=== PATIENT | female | born 1980 | race Caucasian/White ===

== ENCOUNTER → 2020-11-05 08:01 | Outpatient (BNVA) | payer OTHER, SELFPAY | PROVIDERS: PCP Internal Medicine; Visit Provider Advanced Practice Midwife | DX: Z34.90 Encounter for supervision of normal pregnancy, unspecified, unspecified trimester (principal); R11.0 Nausea | CPT/HCPCS: 99202 ==

== ENCOUNTER 2020-11-14 12:39 | Outpatient (REF) | payer OTHER, SELFPAY ==
--- NOTE | ~2020-11-14 | US_ITS ---
EXAMINATION: US OBSTETRICAL ULTRASOUND CLINICAL INFORMATION: Z34.90 - Encounter for supervision of normal COMPARISON: Pelvic ultrasound 08/28/2015. LMP: 04/27/2021. Gestational age by maternal dates is 11 weeks 1 day. Estimated date of delivery by maternal dates is 06/04/2021. TECHNIQUE: Ultrasound of the maternal pelvis is performed using transabdominal transducer. M-mode Doppler is also performed. FINDINGS: There is a single intrauterine gestation with visible yolk sac and embryo and cardiac activity. There is small subchorionic hemorrhage approximately 0.7 x 2.8 cm. HR: 163 beats per minute. CRL (crown rump length): 4.15 cm (11 weeks 1 day +/- 4 days). MARCOS (estimated date of delivery): 06/04/2021 +/- 4 days. MATERNAL ADNEXA: The right maternal ovary measures 2.5 x 2.0 x 2.0 cm. The left maternal ovary measures 2.6 x 2.3 x 2.4 cm. There is no significant maternal adnexal mass. No maternal pelvic ascites. US/US OB <= 14 weeks fetus IMPRESSION: 1. Single intrauterine gestation with ultrasound gestational age of 11 weeks 1 day +/- 4 days. 2. Estimated date of delivery is 06/04/2021 +/- 4 days. 3. Small subchorionic hemorrhage 0.7 x 2.8 cm. 4 No maternal adnexal mass or pelvic ascites.
== END 2020-11-14 12:40 | disposition home or self-care (01) ==
LOC: HO.US 12:39
PROVIDERS: PCP Internal Medicine; Visit Provider Advanced Practice Midwife
DX: O09.521 Supervision of elderly multigravida, first trimester (principal); Z3A.11 11 weeks gestation of pregnancy
CPT/HCPCS: 76801

== ENCOUNTER → 2020-12-02 09:39 | Outpatient (BNVA) | payer OTHER, SELFPAY | PROVIDERS: PCP Internal Medicine; Visit Provider Advanced Practice Midwife | DX: Z13.89 Encounter for screening for other disorder (principal) | CPT/HCPCS: 99212 ==

== ENCOUNTER 2020-12-04 08:33 | Outpatient (REF) | payer OTHER, SELFPAY ==
[2020-12-04 12:14] LABS: MANUAL DIFF FLAG NO
[2020-12-04 12:19] LABS: Basophils Percent Auto 0.3 % (0-2); Eosinophils Absolute Auto 0.1 X10*3/uL (0.0-0.4); Eosinophils Percent Auto 1.1 % (0-4); Hemoglobin 13.3 g/dl (12.0-16.0); Imm Gran Abs Auto 0.05 X10*3/uL (0.00-0.03); Imm Gran Pct Auto 0.6 % (0.0-0.4); Lymphocytes Absolute Auto 1.6 X10*3/uL (1.2-4.9); Lymphocytes Percent Auto 17.9 % (20-40); Mean Corpuscular HGB Conc 34.1 g/dl (31.0-35.0); Mean Corpuscular Hemoglobin 31.1 pg (27.0-33.0); Mean Corpuscular Volume 91.1 fL (80-98); Mean Platelet Volume 10.7 fL (9.4-12.3); Monocytes Absolute Auto 0.5 X10*3/uL (0.1-1.2); Neutrophils Absolute Auto 6.6 X10*3/uL (2.0-8.3); Neutrophils Percent Auto 74.1 % (45-73); Platelet Count 272 X10*3/uL (160-400); Red Blood Count 4.28 X10*6/uL (4.20-5.50); Red Cell Distribution Width 12.3 % (11.0-16.0); White Blood Count 8.9 X10*3/uL (4.8-10.8)
[2020-12-04 12:31] LABS: Glucose 1 Hour PP 50gm Dose 145 mg/dL (60-140)
[2020-12-04 12:44] LABS: Amphetamine Screen Urine Not Detected (Not Detect); Barbiturates, Urine Not Detected (Not Detect); Benzodiazepines Screen Urine Not Detected (Not Detect); Cannabinoid Screen Urine Not Detected (Not Detect); Cocaine Screen Urine Not Detected (Not Detect); Opiate Screen Urine Not Detected (Not Detect); Phencyclidine Screen Urine Not Detected (Not Detect)
[2020-12-04 12:54] LABS: Syphilis Screen Nonreactive (Nonreactive)
[2020-12-05 01:48] LABS: CT PCR NOT DETECTED (Not Detect.); NG PCR NOT DETECTED (Not Detect.)
[2020-12-05 05:17] LABS: Varicella IgG Antibody <135.00 index
[2020-12-06 07:46] LABS: ~HepC Num1 0.09 S/CO (0.00-0.79); ~Hepatitis C Antibody Nonreactive (Nonreactive)
[2020-12-06 08:34] LABS: HBsAGNum1 0.28 S/CO (0.00-0.99); HIV AB/AG Nonreactive (Nonreactive); HIV Num 1 0.06 S/CO (0.00-0.99); Hepatitis B Surface Antigen Negative (Negative)
== END 2020-12-04 08:34 | disposition home or self-care (01) ==
LOC: HO.LAB 08:33
PROVIDERS: Advanced Practice Midwife; PCP Internal Medicine; Visit Provider Advanced Practice Midwife
DX: O09.522 Supervision of elderly multigravida, second trimester (principal); O09.292 Supervision of pregnancy with other poor reproductive or obstetric history, second trimester; Z3A.14 14 weeks gestation of pregnancy
CPT/HCPCS: 80307; 81003; 85025; 86762; 86780; 86787; 86803; 86850; 86900; 86901; 87086; 87340; 87389; 87491; 87591; 99212

== ENCOUNTER 2020-12-06 07:47 | Outpatient (REF) | payer OTHER, SELFPAY ==
[2020-12-06 08:57] LABS: Glucose Fasting 85 mg/dL (60-99)
[2020-12-06 10:37] LABS: Glucose 1 Hour 198 mg/dL
[2020-12-06 10:54] LABS: Glucose 2 Hour 148 mg/dL
[2020-12-06 12:43] LABS: Glucose 3 Hour 88 mg/dL
== END 2020-12-06 07:48 | disposition home or self-care (01) ==
LOC: HO.LAB 07:47
PROVIDERS: PCP Internal Medicine; Visit Provider Advanced Practice Midwife
DX: O99.810 Abnormal glucose complicating pregnancy (principal); O09.519 Supervision of elderly primigravida, unspecified trimester; Z3A.00 Weeks of gestation of pregnancy not specified
CPT/HCPCS: 36415; 82951

== ENCOUNTER → 2021-01-01 08:58 | Outpatient (BNVA) | payer OTHER, SELFPAY | PROVIDERS: PCP Internal Medicine; Visit Provider Advanced Practice Midwife | DX: Z34.92 Encounter for supervision of normal pregnancy, unspecified, second trimester (principal); Z3A.18 18 weeks gestation of pregnancy | CPT/HCPCS: 81003; 99212 ==

== ENCOUNTER 2021-01-03 08:02 | Outpatient (REF) | payer OTHER, SELFPAY ==
--- NOTE | ~2021-01-03 | US_ITS ---
EXAMINATION: US OBSTETRICAL CLINICAL INFORMATION: 40-year-old at the 18.2 weeks of gestation [place] Screening for anomaly COMPARISON: 11/14/2020 TECHNIQUE: Real-time transabdominal ultrasound was performed using C1-5 megahertz transducer. FINDINGS: A single, active, fetus is seen in transverse presentation. The placenta is posterior without previa, and the amniotic fluid volume is wnl. MEASUREMENTS: 1. Biparietal Diameter: 4.0 cm; 18.1 wks 2. Occipital Frontal Diameter: 5.3 cm 3. Head Circumference: 14.9 cm; 18.1 wks 4. Abdominal Circumference: 13.0 cm; 18.4 wks 5. Femur Length: 2.8 cm; 18.4 wks 6. Humerus Length: 2.7 cm; 18.3 wks 7. Tibia Length: 2.3 cm; 18.0 wks 8. Ulna Length: 2.4 cm; 18.4 wks 9. Lateral ventricle: 0.7 cm 10. Cerebellum: 1.7 cm; 18.2 wks 11. Cisterna Magna: 0.5 cm 12. Nuchal Fold: 2.8 mm 13. Heart Rate: 152 beats per minute Rt ovary: normal Lt ovary: normal Cervical length 5.0 cm on T/A. GESTATIONAL AGE: 1. Established GA: 18.2 wks 2. GA from [facility]: 18.3 wks ESTIMATED DATE OF DELIVERY: 1. Established MARCOS: 06/04/2021 2. MARCOS from [facility]: 06/03/2021 ANATOMY: The survey was suboptimal due to position. No abnormalities were seen in visualized anatomy. The visualized anatomy includes but not limited to: 1. Cranium: Normal 2. Intracranial anatomy: cavum septum pellucidi, lateral ventricles, choroid plexus, cerebellum, posterior fossa, third and fourth ventricles. 3. face: orbits, lip/palate, profile, nasal bone 4. Heart: Suboptimal views of four-chamber, ventricular septum, LVOT and RVOT. Rest of the cardiac anatomy was within normal limits. 5. Diaphragm: Normal 6. Abdominal wall: Normal 7. Cord Insertion: Normal 8. Spine: Cervical, thoracic, lumbar, sacral. 9. Stomach: Normal size and shape 10. Right Kidney: Normal 11. Left Kidney: Normal 12. 3 vessel cord: Normal 13. Upper extremity: Open hands, fifth digit. 14. Lower extremity: Tibia, fibula, bilateral feet. 15. Bladder: Normal 16. Genitalia: Female, patient aware US/US OB /maternal detail IMPRESSION: 1. A single, living, intrauterine with appropriate biometry. 2. The survey is suboptimal due to position. However no abnormalities were seen in visualized anatomy. RECOMMENDATIONS: 1. A follow-up has been scheduled in 2 weeks. Thank you for allowing me to participate in her care. This note was generated with a voice recognition program. Please excuse any errors which may have been overlooked during my review of this note. Sometimes these errors may affect the content or meaning of a given sentence.
== END 2021-01-03 08:03 | disposition home or self-care (01) ==
LOC: HO.US 08:02
PROVIDERS: Visit Provider Advanced Practice Midwife
DX: Z34.92 Encounter for supervision of normal pregnancy, unspecified, second trimester (principal); Z36.3 Encounter for antenatal screening for malformations
CPT/HCPCS: 76811

== ENCOUNTER 2021-01-17 08:08 | Outpatient (REF) | payer OTHER, SELFPAY ==
--- NOTE | ~2021-01-17 | US_ITS ---
EXAMINATION: OBSTETRICAL ULTRASOUND, Follow up HISTORY: 40-year-old at the 20.2 weeks of gestation Follow-up survey AMA COMPARISON: 01/03/2021 TECHNIQUE: Real time transabdominal imaging with color and M-mode Doppler. PRESENTATION: Transverse PLACENTA LOCATION: Posterior without previa AMNIOTIC FLUID: Normal MEASUREMENTS: 1. Biparietal Diameter: 4.5 cm; 19.5 wks 2. Head Circumference: 16.98 cm; 19.5 wks 3. Abdominal Circumference: 14.97 cm; 20.2 wks 4. Femur Length: 3.3 cm; 20.3 wks 5. Heart Rate: 136 beats per minute WEIGHT: Estimated weight is 340 grams (0 lbs 12 oz) -- 41 %. Normal views of lateral cerebral ventricle, profile, nose/lips, 4ch view, LVOT, RVOT, IVC. GESTATIONAL AGE: 1. Established GA: 20.2 wks 2. GA from [facility]: 20.1 wks ESTIMATED DATE OF DELIVERY: 1. Established MARCOS: 06/04/2021 2. MARCOS from [facility]: 06/05/2021 US/US OB follow up IMPRESSION: 1. A single fetus with appropriate interval growth. 2. Previously limited views of the anatomy were seen as listed above. No abnormalities were noted in visualized anatomy. 3. This completes the survey. I reviewed the limitations of ultrasound in diagnosing aneuploidy and other congenital abnormalities. Amniocentesis was again reviewed and she declined. She was informed that the baseline instance of congenital abnormalities and defects in the general population is approximately 3-5%. Not all these conditions are diagnosable in utero. RECOMMENDATIONS: 1. f/u PRN Thank you very much for this referral. This note was generated with a voice recognition program. Please excuse any errors which may have been overlooked during my review of this note. Sometimes these errors may affect the content or meaning of a given sentence.
== END 2021-01-17 08:09 | disposition home or self-care (01) ==
LOC: HO.US 08:08
PROVIDERS: Visit Provider Advanced Practice Midwife
DX: Z34.92 Encounter for supervision of normal pregnancy, unspecified, second trimester (principal); Z36.3 Encounter for antenatal screening for malformations
CPT/HCPCS: 76816

== ENCOUNTER 2021-01-29 08:44 | Outpatient (REF) | payer OTHER, SELFPAY ==
[2021-01-29 12:14] LABS: Hemoglobin 12.3 g/dl (12.0-16.0); Mean Corpuscular HGB Conc 33.2 g/dl (31.0-35.0); Mean Corpuscular Hemoglobin 31.1 pg (27.0-33.0); Mean Corpuscular Volume 93.4 fL (80-98); Platelet Count 278 X10*3/uL (160-400); Red Blood Count 3.96 X10*6/uL (4.20-5.50); Red Cell Distribution Width 12.8 % (11.0-16.0); White Blood Count 10.5 X10*3/uL (4.8-10.8)
[2021-01-29 16:01] LABS: Alanine Aminotransferase 22 U/L (0-31); Aspartate Amino Transferase 16 U/L (5-31); Blood Urea Nitrogen 7 mg/dL (9-16); Estimated Glomerular Filt Rate > 60; Glucose Random 71 mg/dL (60-115); Uric Acid 2.8 mg/dL (2.4-5.7)
[2021-01-29 16:06] LABS: Creatinine Urine 19.28 mg/dL; Total Protein Urine Random < 7 mg/dL (<12)
== END 2021-01-29 08:45 | disposition home or self-care (01) ==
LOC: HO.LAB 08:44
PROVIDERS: PCP Internal Medicine; Visit Provider Advanced Practice Midwife
DX: O26.892 Other specified pregnancy related conditions, second trimester (principal); R51.9 Headache, unspecified
CPT/HCPCS: 36415; 81003; 82565; 82947; 84156; 84450; 84460; 84520; 84550; 85027; 99212

== ENCOUNTER → 2021-02-26 08:49 | Outpatient (BNVA) | payer OTHER, SELFPAY | PROVIDERS: PCP Internal Medicine; Visit Provider Advanced Practice Midwife | DX: Z34.82 Encounter for supervision of other normal pregnancy, second trimester (principal); Z3A.26 26 weeks gestation of pregnancy | CPT/HCPCS: 81003; 99212 ==

== ENCOUNTER 2021-03-12 08:17 | Outpatient (REF) | payer OTHER, SELFPAY ==
[2021-03-12 10:18] LABS: Hematocrit 35.2 % (37-47); Hemoglobin 12.2 g/dl (12.0-16.0); Mean Corpuscular HGB Conc 34.7 g/dl (31.0-35.0); Mean Corpuscular Volume 92.4 fL (80-98); Mean Platelet Volume 10.8 fL (9.4-12.3); Platelet Count 239 X10*3/uL (160-400); Red Blood Count 3.81 X10*6/uL (4.20-5.50); Red Cell Distribution Width 12.7 % (11.0-16.0)
[2021-03-12 10:58] LABS: Glucose Fasting 92 mg/dL (60-99); Syphilis Screen Nonreactive (Nonreactive)
[2021-03-12 12:46] LABS: Glucose 2 Hour 186 mg/dL
[2021-03-12 13:36] LABS: Glucose 3 Hour 111 mg/dL
[2021-03-12 14:18] LABS: Glucose 1 Hour 214 mg/dL
== END 2021-03-12 08:18 | disposition home or self-care (01) ==
LOC: HO.LAB 08:17
PROVIDERS: PCP Internal Medicine; Visit Provider Advanced Practice Midwife
DX: O99.810 Abnormal glucose complicating pregnancy (principal); O09.523 Supervision of elderly multigravida, third trimester; O09.893 Supervision of other high risk pregnancies, third trimester; Z3A.28 28 weeks gestation of pregnancy; Z20.2 Contact with and (suspected) exposure to infections with a predominantly sexual mode of transmission
CPT/HCPCS: 36415; 81003; 82951; 85027; 86780; 99212

== ENCOUNTER → 2021-03-19 12:51 | Outpatient (BNVA) | payer OTHER, SELFPAY | PROVIDERS: PCP Internal Medicine; Visit Provider Advanced Practice Midwife | DX: O26.843 Uterine size-date discrepancy, third trimester (principal); O24.410 Gestational diabetes mellitus in pregnancy, diet controlled; Z3A.29 29 weeks gestation of pregnancy | CPT/HCPCS: 81003; 99212 ==

== ENCOUNTER → 2021-03-26 09:37 | Outpatient (BNVA) | payer OTHER, SELFPAY | PROVIDERS: Visit Provider Obstetrics & Gynecology | DX: O24.419 Gestational diabetes mellitus in pregnancy, unspecified control (principal); O09.523 Supervision of elderly multigravida, third trimester; O26.843 Uterine size-date discrepancy, third trimester; Z3A.30 30 weeks gestation of pregnancy | CPT/HCPCS: 81003; 90471; 90715; 99212 ==

== ENCOUNTER 2021-03-28 14:04 | Outpatient (REF) | payer OTHER, SELFPAY ==
--- NOTE | ~2021-03-28 | US_ITS ---
EXAMINATION: OBSTETRICAL ULTRASOUND, Follow up HISTORY: 41-year-old at the 30.2 weeks of gestation Gestational diabetes on metformin AMA COMPARISON: 01/17/2021 TECHNIQUE: Real time transabdominal imaging with color and M-mode Doppler. PRESENTATION: Vertex PLACENTA LOCATION: Posterior without previa AMNIOTIC FLUID: FIDELINA 11.6 cm MEASUREMENTS: 1. Biparietal Diameter: 7.6 cm; 30.4 wks 2. Head Circumference: 29.2 cm; 32.2 wks 3. Abdominal Circumference: 27.9 cm; 32.0 wks 4. Femur Length: 5.5 cm; 29.1 wks 5. Heart Rate: 132 beats per minute WEIGHT: EFW: 1677 grams (3 lbs 11 oz) -- 62 %. BIOPHYSICAL PROFILE: Motion: 2 Tone: 2 Breathin Amniotic Fluid: 2 Total score: 8/8 GESTATIONAL AGE: 1. Established GA: 30.2 wks 2. GA from [facility]: 31.0 wks ESTIMATED DATE OF DELIVERY: 1. Established MARCOS: 06/04/2021 2. MARCOS from [facility]: 05/30/2021 US/US OB follow up IMPRESSION: 1. A single active fetus is in vertex presentation 2. Size equals dates 3. Reassuring biophysical profile with normal amniotic fluid index According to the patient, she started the metformin 500 mg daily at bedtime 2 days ago. Her fasting this morning was 101 which is same as before the metformin. If her fasting continues to be elevated the early next week, suggesting decreasing metformin 2000 mg daily at bedtime. She is scheduled for a follow-up next week. Thank you very much for this referral. Total time 30 minutes. The time spent was devoted to counseling the patient about the disease and diagnosis, coordinating care including reviewing her records, pertinent lab data and studies, as well as discussing diagnostic evaluation and workup, plan therapeutic interventions and future disposition of care. This includes any additional research needed to obtain further information in formulating the plan of care of this patient. This note was generated with a voice recognition program. Please excuse any errors which may have been overlooked during my review of this note. Sometimes these errors may affect the content or meaning of a given sentence.
== END 2021-03-28 14:05 | disposition home or self-care (01) ==
LOC: HO.US 14:04
PROVIDERS: PCP Internal Medicine; Visit Provider Advanced Practice Midwife
DX: O24.419 Gestational diabetes mellitus in pregnancy, unspecified control (principal)
CPT/HCPCS: 76816

== ENCOUNTER → 2021-04-01 08:17 | Outpatient (BNVA) | payer OTHER, SELFPAY | PROVIDERS: PCP Internal Medicine; Visit Provider Obstetrics & Gynecology | DX: O24.415 Gestational diabetes mellitus in pregnancy, controlled by oral hypoglycemic drugs (principal); Z3A.30 30 weeks gestation of pregnancy | CPT/HCPCS: 99212 ==

== ENCOUNTER → 2021-04-08 14:44 | Outpatient (BNVA) | payer OTHER, SELFPAY | PROVIDERS: PCP Internal Medicine; Visit Provider Obstetrics & Gynecology | DX: O24.415 Gestational diabetes mellitus in pregnancy, controlled by oral hypoglycemic drugs (principal); Z3A.31 31 weeks gestation of pregnancy | CPT/HCPCS: 59025; 99212 ==

== ENCOUNTER 2021-04-11 10:48 | Outpatient (REF) | payer OTHER, SELFPAY ==
--- NOTE | ~2021-04-11 | US_ITS ---
EXAMINATION: US OBSTETRICAL (BIOPHYSICAL PROFILE) CLINICAL INFORMATION: 41-year-old at 32.2 weeks of gestation Gestational diabetes on metformin AMA COMPARISON: 03/28/2021 TECHNIQUE: Biophysical profile is performed over 30 minutes with assessment of breathing, gross body movement, tone, and qualitative amniotic fluid volume. FINDINGS: POSITION: Cephalic PLACENTA: Posterior without previa AMNIOTIC FLUID INDEX: 18.7 cm CARDIAC ACTIVITY: 148 beats per minute BIOPHYSICAL PROFILE: Motion: 2 Tone: 2 Breathin Amniotic Fluid: 2 The total biophysical score is 8/8 US/US OB biophysical profile IMPRESSION: 1. Single intrauterine gestation in vertex position. 2. Reassuring BPP and FIDELINA Patient reports that her of the fasting glucose values are slowly rising. She is currently on metformin 1000 mg daily at bedtime and 500 mg every morning. She expressed of frustration over rising glucose values despite her compliance with diet and metformin. Have informed the patient that the production of placental lactogen will continue to increase with the increasing gestational age until approximately 37 weeks of gestation. During this time, her insulin resistance may have worsened until delivery. It is possible that she would need evening now NPH. She is transferring her care to the [facility] for the management of her GDM. We can continue to provide testing until she is to be seen at the [facility]. For now I advised her to the continue the current dose of metformin and compliance with GDM diet. Thank you for allowing me to participate in her care. Total time 30 minutes. The time spent was devoted to counseling the patient about the disease and diagnosis, coordinating care including reviewing her records, pertinent lab data and studies, as well as discussing diagnostic evaluation and workup, plan therapeutic interventions and future disposition of care. This includes any additional research needed to obtain further information in formulating the plan of care of this patient. This note was generated with a voice recognition program. Please excuse any errors which may have been overlooked during my review of this note. Sometimes these errors may affect the content or meaning of a given sentence.
== END 2021-04-11 10:49 | disposition home or self-care (01) ==
LOC: HO.US 10:48
PROVIDERS: PCP Internal Medicine; Visit Provider Advanced Practice Midwife
DX: O24.419 Gestational diabetes mellitus in pregnancy, unspecified control (principal)
CPT/HCPCS: 76819

== ENCOUNTER → 2021-04-15 08:39 | Outpatient (BNVA) | payer OTHER, SELFPAY | PROVIDERS: Visit Provider Advanced Practice Midwife | DX: O24.415 Gestational diabetes mellitus in pregnancy, controlled by oral hypoglycemic drugs (principal); Z3A.32 32 weeks gestation of pregnancy | CPT/HCPCS: 59025; 99212 ==

== ENCOUNTER 2021-04-18 12:15 | Outpatient (REF) | payer OTHER, SELFPAY ==
--- NOTE | ~2021-04-18 | US_ITS ---
EXAMINATION: US OBSTETRICAL (BIOPHYSICAL PROFILE) CLINICAL INFORMATION: A 41-year-old at 33.2 weeks of gestation Gestational diabetes on metformin Advanced maternal age COMPARISON: 04/11/2021 TECHNIQUE: Biophysical profile is performed over 30 minutes with assessment of breathing, gross body movement, tone, and qualitative amniotic fluid volume. FINDINGS: POSITION: Cephalic PLACENTA: Posterior without previa AMNIOTIC FLUID INDEX: 17.6 cm CARDIAC ACTIVITY: 142 beats per minute BIOPHYSICAL PROFILE: Motion: 2 Tone: 2 Breathin Amniotic Fluid: 2 The total biophysical score is 8/8 US/US OB biophysical profile IMPRESSION: 1. Single intrauterine gestation in vertex position. 2. Reassuring BPP and FIDELINA She is currently on metformin 1000 mg twice a day. Informs me that her fasting values are in the 80s. The majority of her postprandial values are within the target range. She is more compliant with her GDM diet. I also informed her that the tip glucose intolerance may worsen as she approaches term before they start to improve. Thank you for allowing me to participate in her care. She is scheduled for weekly follow-up. Total time 30 minutes. The time spent was devoted to counseling the patient about the disease and diagnosis, coordinating care including reviewing her records, pertinent lab data and studies, as well as discussing diagnostic evaluation and workup, plan therapeutic interventions and future disposition of care. This includes any additional research needed to obtain further information in formulating the plan of care of this patient. This note was generated with a voice recognition program. Please excuse any errors which may have been overlooked during my review of this note. Sometimes these errors may affect the content or meaning of a given sentence.
== END 2021-04-18 12:16 | disposition home or self-care (01) ==
LOC: HO.US 12:15
PROVIDERS: Visit Provider Obstetrics & Gynecology
DX: O24.419 Gestational diabetes mellitus in pregnancy, unspecified control (principal)
CPT/HCPCS: 76819

== ENCOUNTER → 2021-04-22 09:36 | Outpatient (BNVA) | payer OTHER, SELFPAY | PROVIDERS: Visit Provider Advanced Practice Midwife | DX: O09.523 Supervision of elderly multigravida, third trimester (principal); O24.415 Gestational diabetes mellitus in pregnancy, controlled by oral hypoglycemic drugs; Z3A.33 33 weeks gestation of pregnancy | CPT/HCPCS: 59025; 99212 ==

== ENCOUNTER 2022-11-06 08:01 | Outpatient (REF) | payer OTHER, SELFPAY ==
[2022-11-06 11:32] LABS: MANUAL DIFF FLAG NO
[2022-11-06 11:58] LABS: Basophils Absolute Auto 0.1 X10*3/uL (0.0-0.2); Basophils Percent Auto 0.9 % (0-2); Eosinophils Absolute Auto 0.1 X10*3/uL (0.0-0.4); Eosinophils Percent Auto 1.4 % (0-4); Hematocrit 42.4 % (37.0-47.0); Hemoglobin 13.8 g/dl (12.0-16.0); Lymphocytes Absolute Auto 1.7 X10*3/uL (1.2-4.9); Lymphocytes Percent Auto 29.7 % (20-40); Mean Corpuscular HGB Conc 32.5 g/dl (31.0-35.0); Mean Corpuscular Hemoglobin 29.6 pg (27.0-33.0); Mean Corpuscular Volume 90.8 fL (80.0-98.0); Mean Platelet Volume 10.5 fL (9.4-12.3); Monocytes Absolute Auto 0.4 X10*3/uL (0.1-1.2); Monocytes Percent Auto 7.4 % (2-11); Neutrophils Absolute Auto 3.4 x10*3/uL (2.0-8.3); Neutrophils Percent Auto 60.6 % (45-73); Platelet Count 309 X10*3/uL (160-400); Red Blood Count 4.67 X10*6/uL (4.20-5.50); Red Cell Distribution Width 12.1 % (11.0-16.0); White Blood Count 5.6 X10*3/uL (4.8-10.8)
[2022-11-06 12:30] LABS: Alanine Aminotransferase 54 U/L (0-31); Anion Gap 11 (12-20); Aspartate Amino Transferase 28 U/L (5-31); Blood Urea Nitrogen 15 mg/dL (9-16); Calcium 9.3 mg/dL (8.4-10.2); Carbon Dioxide 25 mmol/L (22-29); Chloride 108 mmol/L (96-108); Cholesterol 218 mg/dL; Estimated Glomerular Filt Rate > 60; Glucose Fasting 81 mg/dL (60-99); HDL Cholesterol 64 mg/dL; LDL Cholesterol Calculated 143 mg/dl; Sodium 140 mmol/L (135-145); Triglycerides 56 mg/dL
[2022-11-06 12:32] LABS: Estimated Average Glucose 100 mg/dL; Hemoglobin A1c % 5.1 %
[2022-11-06 12:37] LABS: TSH reflex Free T4 1.25 uIU/mL (0.32-4.0)
== END 2022-11-06 08:02 | disposition home or self-care (01) ==
LOC: HO.HMGCLDS 08:01
PROVIDERS: PCP Internal Medicine; Visit Provider Internal Medicine
DX: Z00.01 Encounter for general adult medical examination with abnormal findings (principal); Z86.32 Personal history of gestational diabetes; Z83.3 Family history of diabetes mellitus; Z83.49 Family history of other endocrine, nutritional and metabolic diseases
CPT/HCPCS: 36415; 80048; 80061; 83036; 84443; 84450; 84460; 85025

== ENCOUNTER 2022-11-10 14:43 | Outpatient (REF) | payer OTHER, SELFPAY ==
--- NOTE | ~2022-11-10 | US_ITS ---
EXAMINATION: US RENAL, LEFT CLINICAL INFORMATION: Left flank pain. COMPARISON: CT abdomen and pelvis without contrast 12/23/2016. Ultrasound retroperitoneal limited (renal only) 11/27/2016 and 06/22/2014. TECHNIQUE: Real-time imaging of the left kidney. FINDINGS: LEFT KIDNEY: 11.3 x 5.7 x 5.4 cm (SAG x AP x TRV). The kidney is normal in size, and contour. There are echogenic renal pyramids questionable for medullary sponge kidney. No calculi or focal parenchymal lesions. No hydronephrosis. US/US renal LT IMPRESSION: Echogenic renal pyramids questionable for medullary sponge kidney. No left stone or hydronephrosis.
== END 2022-11-10 14:44 | disposition home or self-care (01) ==
LOC: HO.HMGCX 14:43
PROVIDERS: PCP Internal Medicine; Visit Provider Internal Medicine
DX: R10.9 Unspecified abdominal pain (principal); Z87.442 Personal history of urinary calculi
CPT/HCPCS: 76775

== ENCOUNTER 2023-05-29 07:44 | Emergency (ER) | payer OTHER, SELFPAY ==
[2023-05-29 07:46] VITALS: BP 134/81; PULSE 73; RESP 16; TEMP 36.1; O2SAT 99; BMI 31.4
--- NOTE | 2023-05-29 08:07 | ED_ITS ---
HPI - Animal Bite General Chief Complaint: Animal Bite Stated Complaint: mouse bite 10 days ago Time Seen by Provider: 05/29/23 07:46 Source: patient Mode of arrival: ambulatory Limitations: no limitations History of Present Illness HPI narrative: patient is a 43-year-old female who presents emergency department for evaluation of a animal bite. She reports on 05/17/2023 she was bitten by a mouse to her distal medial thigh. She had a small puncture elana which has since resolved. There is no surrounding redness, swelling, pain, active discharge, nor has she been experiencing any fevers, chills, neurological symptoms. She reports calling her doctor's office and was advised to come to the emergency department for evaluation in rabies vaccination. She reports her last tetanus vaccination was greater than 5 years ago. Related Data Previous Rx's Medication Instructions Recorded blood sugar diagnostic (FreeStyle #100 ea 03/12/21 Lite Strips) blood-glucose meter (FreeStyle #1 ea 03/12/21 Lite Meter kit) lancets 28 gauge (FreeStyle #100 ea 03/12/21 Lancets) blood sugar diagnostic (FreeStyle #100 ea 04/08/21 Lite Strips) lancets 28 gauge (FreeStyle #100 ea 04/08/21 Lancets) Allergies Allergy/AdvReac Type Severity Reaction Status Date / Time No Known Allergies Allergy Verified 11/04/22 04:02 Review of Systems Review of Systems: Yes all other systems are reviewed and are negative [facility] Past Medical History Attestation statement: The following information was validated with the patient. Source: old records reviewed Medical History COVID-19 vaccine dose declined History of kidney stones Acute left flank pain Hx of gestational diabetes mellitus, not currently Family history of diabetes mellitus in father Family history of thyroid disease in mother Abnormal glucose complicating childbirth Gestational diabetes History of COVID-19 Surgical History Hx of umbilical hernia repair Hx of appendectomy Family History Family History Father Type 2 diabetes mellitus Mother Multiple myeloma Maternal Grandfather No problems noted. Paternal Grandfather No problems noted. Social History Social History Household Members: Spouse and Children Housing: House Are you a primary respiratory care instructor to a significant other at home: No Do you presently have visiting nurse or other home services: No Alcohol intake: never Patient Tobacco Use Status: Never used Tobacco e-Cigarette/Vaping Use: Never Used Trauma History: none Agree to transfusion: Yes service: Yes Current occupational status: employed Current occupation: [employer] Current occupational exposures/hazards: Yes Cognitive needs: No Hearing needs: No Vision needs: Yes Physical Exam ED Vital Signs: Vital Signs - 24 hr 05/29/23 07:46 Temperature 97.0 F Pulse Rate 73 Respiratory Rate 16 Blood Pressure 134/81 Pulse Oximetry 99 Oxygen Delivery Method Room Air BMI result Body Mass Index 31.4 Appearance: Alert.?Oriented to person, place and time. No acute distress.?Normal affect. Eyes: Pupils equal, round and reactive to light.? Neck: Normal inspection.? Neck supple.?? CVS: Heart sounds normal. Normal heart rate and rhythm.? Pulses normal.?? Respiratory: No respiratory distress.? Lung sounds clear to auscultation bilate rally?? Abdomen: Soft and non-tender. Normoactive bowel sounds Skin: Skin warm and dry.? Normal skin color.? Extremities: No lower extremity edema.? No calf ttp? Neuro: Moves all extremities spontaneously. Sensation intact bilaterally. CN II- XII intact. No focal neuro deficits. Ambulates with normal steady gait. Medical Decision Making Medical Decision Making MDM Narrative: Patient is a 53-year-old female who presents to the emergency department for evaluation after a mouse bit her thigh 10 days ago. The bite is not visibly noticeable at this time, no signs of surrounding infection or cellulitis. Given duration since last tetanus vaccination Tdap was updated today. Per CDC and UpToDate, Patient advised that post exposure prophylaxis with rabies vaccination is not recommended after bites from small rodents including mice, they have almost never been found to carry rabies nor have they been found to transmit rabies to humans. She is in agreement with this plan of care. She has no physical complaints. At this time she is stable for discharge. Differential Diagnosis Differential Diagnoses: The differential diagnosis associated with the presentation includes ( As noted above) External Record Review External record reviewed: Outpatient record Prescription Management I considered prescription management with: Antibiotic ( 10 days since bite, no signs of cellulitis or infection, no indication for prophylactic antibiotics) Discharge Plan Discharge Clinical Impression: Bite by animal Patient Disposition: Home, Self-Care Additional Instructions: your tetanus vaccine was updated today. As discussed since it has been 10 days since the bite are no signs of infection, no indication for prophylactic antibiotics at this time. Furthermore, small rodents including mice have almost never been found to have rabies, nor have they been found to transmit rabies to humans, at this time there is no indication to start vaccination with rabies ser ies. Prescriptions: No Action (DME) blood-glucose meter [FreeStyle Lite Meter] Kit See Rx Instructions miscellaneous .MEDSUPPLY Qty: 1 0RF Rx Instructions: As directed (DME) lancets [FreeStyle Lancets] 28 gauge misc See Rx Instructions .ROUTE .MEDSUPPLY Qty: 100 0RF Rx Instructions: x4/day (DME) FreeStyle Lite Strips Strip See Rx Instructions .ROUTE .MEDSUPPLY Qty: 100 0RF Rx Instructions: x4/day (DME) lancets [FreeStyle Lancets] 28 gauge misc See Rx Instructions .ROUTE .MEDSUPPLY Qty: 100 3RF Rx Instructions: qid (DME) FreeStyle Lite Strips Strip See Rx Instructions .ROUTE .MEDSUPPLY Qty: 100 3RF Rx Instructions: QID Referrals: Laurie Sinha MD [Primary Care Provider] -
[2023-05-29] MEDS: Diphth,Pertus(ACell),Tet Adult 0.5 ML SYRINGE IM (08:18)
--- NOTE | 2023-05-29 08:21 | PC.NURSE ---
Pt sent by PCP for Rabies, advised pt it is not recommended for mice bites, provider advised tetanus since she was out of date. PT in agreement with plan. Bite site is non red/warm/swollen.
== END 2023-05-29 08:23 | disposition home or self-care (01) ==
PROVIDERS: Emergency Provider Emergency Medicine; PCP Internal Medicine
DX: S70.372A Other superficial bite of left thigh, initial encounter (principal); W53.01XA Bitten by mouse, initial encounter; Y93.9 Activity, unspecified; Y92.9 Unspecified place or not applicable; Y99.9 Unspecified external cause status
CPT/HCPCS: 90471; 90715; 96372; 99284

== ENCOUNTER 2023-11-10 07:40 | Outpatient (AMB) | payer OTHER, SELFPAY ==
--- NOTE | 2023-11-10 07:53 | A.OFFPC_ITS ---
Vital Signs 11/10/23 07:58 Height 5 ft 2 in Weight 176 lb BMI 32.2 BP 110/80 Blood Pressure Location Rt brachial Position Sitting Pulse 69 Pulse Source Pulse Oximeter Pulse Oximetry (%) 100 Oxygen Delivery Method Room Air Intake Visit Reasons: PE Intake Note: Pt is here today for her PE: last mammogram 08/19/23: papsmear 3yrs ago Is last menstrual period known: Yes Last menstrual period: 10/29/23 Allergies No Known Allergies Allergy (Verified 11/10/23 08:20) Medication List - Last Reconciled 11/10/23 by Laurie Sinha MD No Known Home Meds Tobacco use date assessed: 11/10/23 Dental Screening Dental Screen Date: 11/10/23 Did you have a dental visit in the last 12 months?: No Was dental information given to patient?: No HPI PE HPI Details 43-year-old lady, here today for her phy sical exam, she has history of gestational diabetes, with strong family history for diabetes and hyperlipidemia. She is up-to-date with her mammogram, last done 08/19/2023 with negative findings, and her last cervical cancer screening and pelvic exam was done 2019 with negative findings. Has had 2 COVID vaccines, but does not want to get the booster date with her yearly flu shot and up-to-date with her Tdap. Goes to [facility] for her routine eye exam but still looking for a dentist for dental prophylaxis. Has been having persistent flank pain on the left. This has been an ongoing issue now for the last several years, has had multiple renal ultrasounds and pelvic ultrasound which all came back negative, she had a CT scan of the abdomen pelvis in 2017 which showed presence of tiny bilateral kidney stones.. She denies any urinary symptoms, no abnormal vaginal discharge , no change in her menstrual cycle. No dysmenorrhea PFSH Medical History (Updated 11/10/23 @ 08:38 by Laurie Sinha MD) Dyslipidemia Left flank pain, chronic COVID-19 vaccine dose declined History of kidney stones Hx of gestational diabetes mellitus, not currently Family history of diabetes mellitus in father Family history of thyroid disease in mother Abnormal glucose complicating childbirth Gestational diabetes History of COVID-19 Surgical History (Updated 11/10/23 @ 08:44 by Laurie Sinha MD) History of tubal ligation Hx of umbilical hernia repair Hx of appendectomy Family History Father Type 2 diabetes mellitus Mother Multiple myeloma Maternal Grandfather No problems noted. Paternal Grandfather No problems noted. Social History Household Members: Spouse and Children Housing: House Are you a primary laboratory animal caretaker to a significant other at home: No Do you presently have visiting nurse or other home services: No Alcohol intake: never Patient Tobacco Use Status: Never used Tobacco e-Cigarette/Vaping Use: Never Used Trauma History: none Agree to transfusion: Yes service: Yes Current occupational status: employed Current occupation: [employer] Current occupational exposures/hazards: Yes Cognitive needs: No Hearing needs: No Vision needs: Yes Female Reproductive History Menstrual Age of Menarche: 14 Date of last menstrual period: 10/29/23 Questionnaire PHQ-9 Over the last 2 weeks, how often have you been bothered by any of the following problems? 1. Little interest or pleasure in doing things: not at all 2. Feeling down, depressed, or hopeless: not at all 3. Trouble falling or staying asleep, or sleeping too much: not at all 4. Feeling tired or having little energy: not at all 5. Poor appetite or overeating: not at all 6. Feeling bad about yourself - or that you are a failure or have let yourself or your family down: not at all 7. Trouble concentrating on things, such as reading the newspaper or watching television: not at all 8. Moving or speaking so slowly that other people could have noticed. Or the opposite - being so fidgety or restless that you have been moving around a lot more than usual: not at all 9. Thoughts that you would be better off or of hurting yourself in some way: not at all Total score: 0 Depression Screening Interpretation: Negative Depression Screening Done: Yes 53217 - PHQ-9 Billing: Yes Source: Developed by Drs. Dante Page, Elvie Keita, Leroy Ghotra and colleagues, with an educational nimesh from [employer]. Thrive Questionnaire Date Thrive assessed: 11/10/23 I am a: Patient What is your living situation today?: I have a steady place to live Within the past 12 months, did the food you bought not last and you didn't have the money to get more?: Never true Within the past 12 months, did you worry whether your food would run out before you got money to buy more?: Never true Do you have trouble paying for medicines?: No Do you have trouble getting transportation to medical appointments?: No Do you have trouble paying your heating and electricity bill?: No Do you have trouble taking care of your child, family member or friend?: No Do you have trouble with day-to-day activities such as bathing, preparing meals, shopping, managing finances, etc.?: No Are you currently unemployed and looking for a job?: No Are you interested in more education?: No THRIVE Score: 0 AUDIT C Alcohol Use Questionnaire (AUDIT-C) 1. How often do you have a drink containing alcohol?: Monthly or less 2. How many drinks containing alcohol do you have on a typical day when you are drinking?: 1 or 2 3. How often do you have six or more drinks on one occasion?: Never Total Score: 1 SABINE-7 AMB Questionnaire SABINE-7 Date SABINE - 7 assessed: 11/10/23 Feeling nervous, anxious, or on edge: 0 = Not at all Not being able to stop or control worryin = Not at all Worrying too much about different things: 0 = Not at all Trouble relaxin = Not at all Being so restless that it is hard to sit still: 0 = Not at all Becoming easily annoyed or irritable: 0 = Not at all Feeling afraid as if something awful might happen: 0 = Not at all Total SABINE-7 score (0-4 normal; 5-9 mild; 10-14 moderate; 15-21 severe): 0 Source: Developed by Drs. Dante Page, Elvie Keita, Leroy Ghotra and colleagues, with an educational nimesh from [employer]. SABINE-7 Assessment Billing SABINE-7 Assessment Tool: SABINE-7 Assessment 38334 Review of Systems Const Denies fatigue, Denies fever(s), Denies headache(s) and Denies weakness Eyes Denies change in vision ENT Denies dizziness, Denies headache(s), Denies nasal congestion, Denies nasal di scharge and Denies sore throat Card Denies chest pain, Denies lightheadedness, Denies palpitations and Denies dyspnea Resp Denies chest congestion, Denies cough, Denies dyspnea and Denies wheezing GI Denies change in bowel habits and Denies heartburn Denies hematuria, Denies urinary frequency, Denies dysuria and Denies urinary urgency Musc Reports as per HPI Skin/Breast Denies breast pain, Denies breast mass, Denies lesions and Denies rash Neuro Denies dizziness, Denies headache(s) and Denies weakness Psych Reports no additional complaints Endo Denies fatigue, Denies polydipsia, Denies polyuria and Denies palpitations Alex/Lymph Denies easy bruising Aller/Immun Denies seasonal rhinorrhea and Denies wheezing Physical exam (Primary Care) Vital Signs: Last Vital Signs Pulse 69 11/10/23 07:58 BP 110/80 11/10/23 07:58 Pulse Ox 100 11/10/23 07:58 Oxygen Delivery Method Room Air 11/10/23 07:58 BMI result Body Mass Index 32.2 BMI Assessment/Plan discussion: High BMI High, discussed plan: lifestyle, weight reduction, dietary and physical activity Tobacco/Smoking Status: Tobacco use Status Tobacco use date assessed 11/10/23 11/10/23 08:01 Patient Tobacco Use Status Never used Tobacco 11/10/23 08:01 e-Cigarette/Vaping Use Never Used 11/10/23 08:01 PHQ-9: PHQ-9 Score PHQ-9: Total score 0 11/10/23 08:01 Depression Screening Interpretation: Negative Thrive Assessment: Date of Thrive Assessment Date Thrive assessed 11/10/23 11/10/23 08:01 Const General: healthy appearing and comfortable Nutritional Appearance: obese Orientation/consciousness: patient oriented x3 HENMT Head: Yes normocephalic and Yes atraumatic Ears: hearing grossly normal bilaterally, external ears normal, TM's normal bilaterally and EAC's normal General nose exam: Normal external nose present Face and sinus: Yes face symmetric Mouth: Normal oral and palatal mucosa present, oropharynx normal and moist mucous membranes Eyes General: appearance normal, both eyes and all related structures Neck Neck: Yes full ROM, Yes no lymphadenopathy, Yes no meningeal signs and Yes supple Thyroid: Thyroid normal Chest Other: Just had mammogram earlier this year with negative finding Chest palpation & inspection: normal inspection of the chest Resp Effort & Inspection: normal respiratory effort and able to speak in complete sentences Auscultation: clear to auscultation bilaterally Cardio Rate: regular rate Rhythm: regular rhythm Heart sounds: S1 normal heart sound present and S2 normal heart sound present GI Inspection: Yes normal to inspection Palpation (GI): Soft to palpation, nontender, no guarding and no masses Auscultation: normal bowel sounds Other: Tenderness on palpation over left flank General: Yes CVA tenderness (Left) Back/Spine/Pelvis Back: CVA tenderness (Left) Skin General skin exam: no rashes or lesions noted Neuro General: patient oriented x3, tone normal, moves all extremities, Normal light touch and pain sensation and no meningeal signs Cranial nerves: Yes CN's II-XII intact bilaterally Extrem General: Yes normal to inspection, Yes full ROM, Yes no joint enlargement, Yes no clubbing, cyanosis or edema, Yes no calf tenderness and Yes normal gait Psych Appearance: grossly normal and well kempt Mental Status: mental status grossly normal Speech and movement: Normal speech and movement present Affect: normal affect Assessment and Plan Assessment & Plan (1) Annual visit for general adult medical examination with abnormal findings: Code(s): Z00.01 - Encounter for general adult medical examination with abnormal findings Plan: Will check appropriate labs. Recommended dental visit every 6 months and regular eye exams, at least every 2 years, goes to [facility]. Take adequate calcium in diet and vitamin-D 3 at 2000 IU per cap once a day, in addition to weight-bearing exercises to help maintain good muscle tone and weight control. Instructed to do self-breast exam, and r continue yearly mammogram currently up-to-date. Last Pap smear was done in 2019 with negative findings will repeat another 1 next year. I has had COVID vaccines in the past does not want to get the booster, gets yearly flu shots at work and is up-to-date on her Tdap (2) Left flank pain, chronic: Code(s): R10.9 - Unspecified abdominal pain; G89.29 - Other chronic pain Plan: CT of abdomen pelvis without contrast ordered as well as compressive metabolic panel and urinalysis (3) History of kidney stones: Code(s): Z87.442 - Personal history of urinary calculi Plan: CT of abdomen and pelvis without contrast ordered, urinalysis and comprehensive metabolic panel ordered ordered a (4) Hx of gestational diabetes mellitus, not currently : Code(s): Z86.32 - Personal history of gestational diabetes Plan: Compressive metabolic panel ordered (5) Dyslipidemia: Code(s): E78.5 - Hyperlipidemia, unspecified Plan: Fasting lipid panel ordered, reinforced importance of following a low- cholesterol diet and getting regular exercise (6) Advanced directives, counseling/discussion: Code(s): Z71.89 - Other specified counseling Plan: Initiated the conversation about Advanced Directives. Advanced Directives help patients prepare for current and future decisions about their medical treatment and place of care. Discussed with patient that it is a process where a patients current condition and prognosis are reviewed, their wishes for information regarding their illness are elicited, and likely medical dilemmas are presented and options discussed. Healthcare proxy form done today. The form can be amended as needed, reviewed yearly and make changes as needed Orders: Orders CT abdomen pelvis wo IV con Today G89.29 - Other chronic pain, R10.9 - Unspecified abdominal pain, Z87.442 - Personal history of urinary calculi Comprehensive [place]. Panel Fast Today E78.5 - Hyperlipidemia, unspecified, G89.29 - Other chronic pain, R10.9 - Unspecified abdominal pain, Z00.01 - Encounter for general adult medical examination with abnormal findings, Z13.1 - Encounter for screening for diabetes mellitus, Z86.32 - Personal history of gestational diabetes UA CC w/rflx Micro + Cult Today E78.5 - Hyperlipidemia, unspecified, G89.29 - Other chronic pain, R10.9 - Unspecified abdominal pain, Z00.01 - Encounter for general adult medical examination with abnormal findings, Z13.1 - Encounter for screening for diabetes mellitus, Z86.32 - Personal history of gestational diabetes Lipid Panel Today E78.5 - Hyperlipidemia, unspecified, G89.29 - Other chronic pain, R10.9 - Unspecified abdominal pain, Z00.01 - Encounter for general adult medical examination with abnormal findings, Z13.1 - Encounter for screening for diabetes mellitus, Z86.32 - Personal history of gestational diabetes Vitamin D 25-OH Total Today E78.5 - Hyperlipidemia, unspecified, G89.29 - Other chronic pain, R10.9 - Unspecified abdominal pain, Z00.01 - Encounter for general adult medical examination with abnormal findings, Z13.1 - Encounter for screening for diabetes mellitus, Z86.32 - Personal history of gestational diabetes Coding Level of Care Code Est Pt Prev Care 40-64y(23716) Diagnoses Annual visit for general adult medical examination with abnormal findings Z00.01 Left flank pain, chronic R10.9; G89.29 History of kidney stones Z87.442 Hx of gestational diabetes mellitus, not currently Z86.32 Dyslipidemia E78.5 Advanced directives, counseling/discussion Z71.89 Additional Codes SABINE-7 Assessment Billing - SABINE-7 Assessment Tool: SABINE-7 Assessment 97385 ([id number])
[2023-11-10 07:58] VITALS: BP 110/80; PULSE 69; O2SAT 100; BMI 32.2
== END 2023-11-10 08:49 | disposition home or self-care (01) ==
PROVIDERS: Visit Provider Internal Medicine
DX: Z00.00 Encounter for general adult medical examination without abnormal findings (principal); R10.9 Unspecified abdominal pain; G89.29 Other chronic pain; Z87.442 Personal history of urinary calculi; Z86.32 Personal history of gestational diabetes; E78.5 Hyperlipidemia, unspecified; Z71.89 Other specified counseling
CPT/HCPCS: 99396

== ENCOUNTER 2023-11-10 08:50 | Outpatient (REF) | payer OTHER, SELFPAY ==
[2023-11-10 10:28] LABS: Appearance Urine Clear; Color Urine Yellow; Glucose Urine UA Negative (Negative); Leukocyte Esterase Urine Negative (Negative); Nitrite Urine Negative (Negative); Urine Blood Negative (Negative); Urine Ketones Negative (Negative); Urine Protein Negative (Neg-Trace)
[2023-11-10 11:02] LABS: Alanine Aminotransferase 25 U/L (0-31); Albumin Level 4.3 g/dL (3.5-5.0); Alkaline Phosphatase 76 U/L (39-117); Anion Gap 11 (12-20); Aspartate Amino Transferase 21 U/L (5-31); Bilirubin Total 0.5 mg/dL (0.0-1.0); Blood Urea Nitrogen 10 mg/dL (9-16); Calcium 9.4 mg/dL (8.4-10.2); Carbon Dioxide 23 mmol/L (22-29); Chloride 107 mmol/L (96-108); Cholesterol 213 mg/dL (<200); Estimated Glomerular Filt Rate > 60; Glucose Fasting 93 mg/dL (60-99); HDL Cholesterol 64 mg/dL (>40); LDL Cholesterol Calculated 137 mg/dL (<100); Potassium 4.2 mmol/L (3.3-5.1); Sodium 137 mmol/L (135-145); Total Protein 7.6 g/dL (6.5-8.0); Triglycerides 62 mg/dL (<150)
[2023-11-10 11:28] LABS: Vitamin D 25-OH Total 18.8 ng/mL (>30)
== END 2023-11-10 08:51 | disposition home or self-care (01) ==
LOC: HO.HMGCLDS 08:50
PROVIDERS: PCP Internal Medicine; Visit Provider Internal Medicine
DX: Z86.32 Personal history of gestational diabetes (principal); Z00.01 Encounter for general adult medical examination with abnormal findings; E78.5 Hyperlipidemia, unspecified; Z13.1 Encounter for screening for diabetes mellitus; R10.9 Unspecified abdominal pain; G89.29 Other chronic pain
CPT/HCPCS: 36415; 80053; 80061; 81003; 82306